=== PATIENT | female | born 1960 ===

== ENCOUNTER 2018-10-09 12:00 | Inpatient (IN) | payer OTHER ==
[~2018-10-09] VITALS: Ht 160 cm; Wt 56.7 kg
[2018-10-10] MEDS ORDERED: NP THYROID30 MG PO (09:35)
[2018-10-11] MEDS ORDERED: HYZAAR 100-12.1 EACH PO (14:59)
[2018-10-11] MEDS ORDERED: CLOPIDOGREL BIS75 MG PO (14:59)
== END 2018-10-11 18:25 | disposition home or self-care (01) | DRG 65 ==
LOC: ER 12:00 → MEDJ 15:31
PROVIDERS: ADMIT Internal Medicine
PROC: BW28ZZZ Computerized Tomography (CT Scan) of Head (ICD-10-PCS; principal; 2018-10-09)
PROC: B345ZZZ Ultrasonography of Bilateral Common Carotid Arteries (ICD-10-PCS; 2018-10-09)
PROC: B246ZZZ Ultrasonography of Right and Left Heart (ICD-10-PCS; 2018-10-10)
PROC: B030ZZZ Magnetic Resonance Imaging (MRI) of Brain (ICD-10-PCS; 2018-10-10)
DX: I63.89 Other cerebral infarction (principal); G40.89 Other seizures; G81.91 Hemiplegia, unspecified affecting right dominant side; R53.1 Weakness; R20.2 Paresthesia of skin; E03.8 Other specified hypothyroidism; R47.1 Dysarthria and anarthria; I10 Essential (primary) hypertension; Z88.0 Allergy status to penicillin
CPT/HCPCS: 70551